=== PATIENT | female | born 1965 | race Caucasian/White ===

== ENCOUNTER → 2024-07-10 15:09 | Outpatient (REF) | payer BC, SELFPAY ==
[2024-07-10 16:56] LABS: Hematocrit 32.6 % (37.0-47.0); Hemoglobin 10.9 g/dL (12.0-16.0); Mean Corp Hgb Conc. 33.4 g/dL (33.0-37.0); Mean Corpuscular Hgb 28.8 pg (27.0-31.0); Mean Corpuscular Volume 86.2 fL (81.0-99.0); Mean Platelet Volume 11.5 fL (7.4-10.4); Platelet Count 220 10^3/uL (130-400); Red Blood Cell Count 3.78 10^6/uL (4.20-5.40); Red Cell Dist. Width 13.8 % (11.5-14.5); White Blood Cell Count 4.7 10^3/uL (4.8-10.8)
[2024-07-10 17:03] LABS: ALT (SGPT) 17 U/L (0-35); AST (SGOT) 26 U/L (14-36); Albumin 4.3 g/dl (3.5-5.0); Alkaline Phosphatase 61 U/L (38-126); Blood Urea Nitrogen 13 mg/dl (7-17); Calcium 9.9 mg/dl (8.4-10.2); Carbon Dioxide 29 mmol/L (22-30); Chloride 103 mmol/L (98-107); Glucose 85 mg/dl (70-99); HDL Cholesterol 77 mg/dl; LDL Cholesterol, Calculated 140 mg/dl; Potassium 4.4 mmol/L (3.5-5.1); Sodium 141 mmol/L (135-145); Total Bilirubin 0.5 mg/dl (0.2-1.3); Total Cholesterol 228 mg/dl (50-199); Total Protein 6.2 g/dl (6.3-8.2); Triglyceride 59 mg/dl (10-149); Very Low Density Lipoprotein 11 mg/dl (0-30); eGFR > 60.00
[2024-07-10 17:31] LABS: TSH Reflex To Free T4 1.25 uIU/ml (0.47-4.68)
== END ==
LOC: REG 15:09
PROVIDERS: ATTENDING PHYSICIAN Physician Assistant Medical
DX: Z00.00 Encounter for general adult medical examination without abnormal findings (principal); Z13.220 Encounter for screening for lipoid disorders
CPT/HCPCS: 36415; 80053; 80061; 84443; 85027

== ENCOUNTER → 2024-07-31 07:24 | Outpatient (REF) | payer BC, SELFPAY ==
[2024-07-31 09:10] LABS: Iron 53 ug/dl (37-170)
[2024-07-31 09:19] LABS: Percent Saturation 17 % (20-50); Total Iron Binding Capacity 308 ug/dl (265-497)
[2024-08-02 19:50] LABS: Capillary Hgb Electrophoresis Not Performed; Sickle Cell Solubility Reflex Not Performed
== END ==
LOC: REG 07:24
PROVIDERS: ATTENDING PHYSICIAN Physician Assistant Medical
DX: R71.0 Precipitous drop in hematocrit (principal); R79.89 Other specified abnormal findings of blood chemistry
CPT/HCPCS: 36415; 83021; 83540; 83550

== ENCOUNTER → 2024-08-02 07:31 | Outpatient (REF) | payer BC, SELFPAY | LOC: WDC 07:31 | PROVIDERS: ATTENDING PHYSICIAN Physician Assistant Medical | DX: Z12.31 Encounter for screening mammogram for malignant neoplasm of breast (principal) | CPT/HCPCS: 77063; 77067 ==

== ENCOUNTER → 2024-08-11 06:21 | Day surgery (SDC) | payer BC, SELFPAY | LOC: GI 06:21 | PROVIDERS: ATTENDING PHYSICIAN Internal Medicine Gastroenterology | DX: D12.0 Benign neoplasm of cecum (principal); D12.3 Benign neoplasm of transverse colon; K55.20 Angiodysplasia of colon without hemorrhage; K57.30 Diverticulosis of large intestine without perforation or abscess without bleeding; K64.8 Other hemorrhoids; R19.5 Other fecal abnormalities; D50.9 Iron deficiency anemia, unspecified | CPT/HCPCS: 45385; 88305 ==

== ENCOUNTER → 2024-08-15 11:01 | Outpatient (REF) | payer BC, SELFPAY ==
[2024-08-15 10:03] LABS: % Immature Granulocytes 0.2 % (0-0.5); % Lymphocytes 42.8 % (20.5-51.1); % Monocytes 10.6 % (1.7-9.3); % Neutrophils 42.4 % (42.2-75.2); Absolute Basophils 0.1 10^3/uL (0-0.2); Absolute Eosinophils 0.2 10^3/uL (0-0.7); Absolute Lymphocytes 2.5 10^3/uL (1.2-3.4); Absolute Monocytes 0.6 10^3/uL (0.1-0.6); Absolute Neutrophils 2.4 10^3/uL (1.4-6.5); Hematocrit 33.9 % (37.0-47.0); Hemoglobin 11.1 g/dL (12.0-16.0); Mean Corp Hgb Conc. 32.7 g/dL (33.0-37.0); Mean Corpuscular Hgb 28.3 pg (27.0-31.0); Mean Corpuscular Volume 86.5 fL (81.0-99.0); Mean Platelet Volume 11.5 fL (7.4-10.4); Nucleated Red Blood Cells % 0 %; Platelet Count 220 10^3/uL (130-400); Red Blood Cell Count 3.92 10^6/uL (4.20-5.40); Red Cell Dist. Width 13.7 % (11.5-14.5); White Blood Cell Count 5.7 10^3/uL (4.8-10.8)
[2024-08-15 10:18] LABS: ALT (SGPT) 22 U/L (0-35); AST (SGOT) 26 U/L (14-36); Albumin 4.5 g/dl (3.5-5.0); Alkaline Phosphatase 61 U/L (38-126); Blood Urea Nitrogen 17 mg/dl (7-17); Carbon Dioxide 27 mmol/L (22-30); Chloride 101 mmol/L (98-107); Glucose 101 mg/dl (70-99); Iron 75 ug/dl (37-170); Potassium 3.7 mmol/L (3.5-5.1); Sodium 141 mmol/L (135-145); Total Bilirubin 0.4 mg/dl (0.2-1.3); Total Protein 6.7 g/dl (6.3-8.2); eGFR > 60.00
[2024-08-15 10:28] LABS: Percent Saturation 25 % (20-50); Total Iron Binding Capacity 298 ug/dl (265-497)
[2024-08-15 10:35] LABS: Vitamin D, 25-OH*** 44.2 ng/mL (30-80)
[2024-08-15 10:53] LABS: Ferritin 31.2 ng/ml (11.1-264.0)
[2024-08-15 11:25] LABS: Folate 10.7 ng/ml (2.76-20); Vitamin B12 524 pg/ml (239-931)
[2024-08-16 21:17] LABS: Haptoglobin 108 mg/dL (30-200)
[2024-08-17 01:23] LABS: LD-1 31 % (14-27); LD-2 36 % (29-42); LD-3 21 % (18-30); LD-4 7 % (8-15); LD-5 5 % (6-23); LDH, Total (Sendout) 196 U/L (105-230)
== END ==
LOC: OIDL 11:01
PROVIDERS: ATTENDING PHYSICIAN Nurse Practitioner Acute Care
DX: D64.9 Anemia, unspecified (principal)
CPT/HCPCS: 80053; 82306; 82607; 82728; 82746; 82784; 83010; 83521; 83540; 83550; 83615; 83625; 84155; 84165; 85025; 85045; 86334

== ENCOUNTER → 2024-11-03 12:48 | Outpatient (REF) | payer BC, SELFPAY ==
[2024-11-03 14:09] LABS: Iron 75 ug/dl (37-170)
[2024-11-03 14:18] LABS: Percent Saturation 25 % (20-50); Total Iron Binding Capacity 293 ug/dl (265-497)
[2024-11-03 14:46] LABS: Ferritin 51.9 ng/ml (11.1-264.0)
== END ==
LOC: REG 12:48
PROVIDERS: ATTENDING PHYSICIAN Nurse Practitioner Acute Care; FAMILY PHYSICIAN Physician Assistant Medical
DX: D64.9 Anemia, unspecified (principal)
CPT/HCPCS: 36415; 82728; 83540; 83550

== ENCOUNTER → 2024-11-08 07:18 | Outpatient (REF) | payer BC, SELFPAY ==
[2024-11-08 07:44] LABS: % Basophils 0.9 % (0-2); % Eosinophils 3.7 % (0-6); % Immature Granulocytes 0.2 % (0-0.5); % Lymphocytes 46.6 % (20.5-51.1); % Monocytes 12.9 % (1.7-9.3); % Neutrophils 35.7 % (42.2-75.2); Absolute Basophils 0.1 10^3/uL (0-0.2); Absolute Eosinophils 0.2 10^3/uL (0-0.7); Absolute Lymphocytes 2.7 10^3/uL (1.2-3.4); Absolute Monocytes 0.8 10^3/uL (0.1-0.6); Absolute Neutrophils 2.1 10^3/uL (1.4-6.5); Hematocrit 32.7 % (37.0-47.0); Hemoglobin 10.7 g/dL (12.0-16.0); Mean Corp Hgb Conc. 32.7 g/dL (33.0-37.0); Mean Corpuscular Volume 88.6 fL (81.0-99.0); Mean Platelet Volume 11.1 fL (7.4-10.4); Nucleated Red Blood Cells % 0 %; Platelet Count 221 10^3/uL (130-400); Red Blood Cell Count 3.69 10^6/uL (4.20-5.40); Red Cell Dist. Width 13.2 % (11.5-14.5); White Blood Cell Count 5.9 10^3/uL (4.8-10.8)
== END ==
LOC: REG 07:18
PROVIDERS: ATTENDING PHYSICIAN Nurse Practitioner Acute Care; FAMILY PHYSICIAN Nurse Practitioner Adult Health
DX: D64.9 Anemia, unspecified (principal)
CPT/HCPCS: 36415; 85025

== ENCOUNTER → 2025-03-19 14:20 | Outpatient (REF) | payer BC, SELFPAY ==
[2025-03-19 14:51] LABS: Urine Albumin 2+ (Neg - Trace); Urine Bilirubin Negative (Negative); Urine Character Clear (Clear); Urine Color Yellow; Urine Glucose Negative (Negative); Urine Ketone Negative (Negative); Urine Leukocyte 3+ (Negative); Urine Nitrite Negative (Negative); Urine Occult Blood 4+ (Negative); Urine Specific Gravity 1.015 (<1.030); Urine Urobilinogen Negative (Neg - 1+)
[2025-03-19 15:41] LABS: Urine Squamous Cell 0-2 /LPF (Few); Urine Urothelial Cell 0-2 /LPF (FEW)
[2025-03-19 15:42] LABS: Urine Bacteria Many (Negative); Urine Red Blood Cell 0-2 /HPF (0-2); Urine White Cell 30-40 /HPF (0-5)
== END ==
LOC: REG 14:20
PROVIDERS: ATTENDING PHYSICIAN Student in an Organized Health Care Education/Training Program; FAMILY PHYSICIAN Physician Assistant Medical
DX: R31.9 Hematuria, unspecified (principal)
CPT/HCPCS: 81003; 81015; 87086; 87088; 87186

== ENCOUNTER → 2025-05-12 15:34 | Outpatient (REF) | payer BC, SELFPAY ==
[2025-05-12 16:33] LABS: % Basophils 0.9 % (0-2); % Eosinophils 1.4 % (0-6); % Immature Granulocytes 0.2 % (0-0.5); % Lymphocytes 30.7 % (20.5-51.1); % Monocytes 8.7 % (1.7-9.3); % Neutrophils 58.1 % (42.2-75.2); Absolute Basophils 0.1 10^3/uL (0-0.2); Absolute Eosinophils 0.1 10^3/uL (0-0.7); Absolute Lymphocytes 1.8 10^3/uL (1.2-3.4); Absolute Monocytes 0.5 10^3/uL (0.1-0.6); Absolute Neutrophils 3.4 10^3/uL (1.4-6.5); Hemoglobin 11.5 g/dL (12.0-16.0); Mean Corp Hgb Conc. 33.8 g/dL (33.0-37.0); Mean Corpuscular Volume 85.6 fL (81.0-99.0); Mean Platelet Volume 11.4 fL (7.4-10.4); Nucleated Red Blood Cells % 0 %; Platelet Count 217 10^3/uL (130-400); Red Blood Cell Count 3.97 10^6/uL (4.20-5.40); Red Cell Dist. Width 13.8 % (11.5-14.5); White Blood Cell Count 5.9 10^3/uL (4.8-10.8)
[2025-05-12 16:56] LABS: Iron 102 ug/dl (37-170)
[2025-05-12 17:06] LABS: Percent Saturation 35 % (20-50); Total Iron Binding Capacity 289 ug/dl (265-497)
[2025-05-12 17:31] LABS: Ferritin 38.2 ng/ml (11.1-264.0)
== END ==
LOC: REG 15:34
PROVIDERS: ATTENDING PHYSICIAN Nurse Practitioner Acute Care; FAMILY PHYSICIAN Physician Assistant Medical
DX: D64.9 Anemia, unspecified (principal)
CPT/HCPCS: 36415; 82728; 83540; 83550; 85025

== ENCOUNTER → 2025-08-20 06:35 | Outpatient (REF) | payer BC, SELFPAY ==
[2025-08-20 07:32] LABS: HDL Cholesterol 83 mg/dl; LDL Cholesterol, Calculated 171 mg/dl; Very Low Density Lipoprotein 15 mg/dl (0-30)
== END ==
LOC: REG 06:35
PROVIDERS: ATTENDING PHYSICIAN Physician Assistant Medical
DX: Z13.220 Encounter for screening for lipoid disorders (principal)
CPT/HCPCS: 36415; 80061

== ENCOUNTER 2025-08-26 05:42 | Day surgery (SDC) | payer BC, SELFPAY ==
--- NOTE | 2025-08-10 13:37 | CM ---
Demographics: confirmed
Living situation: living with
Support Person Post Operatively:
History of
VN: No
SNF: No
Outpatient :
Has patient purchased required equipment: yes
PCP: active
Pharmacy: [facility]
Post Operative Discharge Plan: Home with [facility], transition to outpatient.
--- NOTE | 2025-08-12 15:48 | VNURNOTE ---
Patient is scheduled for an elective R TKA on 08/26 - She is a same day patient with Dr Valladares. Spoke with patient prior to surgery. Introduced role of [facility] Liaison. Patient reports that she lives with her spouse in a split level house. She is a
[employer] employee/ RN.
There is 1 small step to enter, a landing, 7 steps to first level and 7 steps to second level where bedroom and powder room are.
She has a cane and rolling walker.
PCP is Dr Valladares
Discussed [facility] joint protocol and post surgical plans.
Reviewed that she will have VN services initially and will then start outpatient PT.
Patient selects [facility] for her home care needs and [facility]. Scheduled for 08/31 .
Patient is in agreement with plan and states that her spouse will be home with her. Advised to bring RW with her day of surgery. [facility] contact number provided. Referral placed in [facility].
Plan: [facility] per [facility] joint protocol 08/26 then outpt PT on 08/31
[2025-08-14 11:14] LABS: Hematocrit 34.5 % (37.0-47.0); Hemoglobin 11.4 g/dL (12.0-16.0); Mean Corp Hgb Conc. 33.0 g/dL (33.0-37.0); Mean Corpuscular Volume 87.8 fL (81.0-99.0); Platelet Count 213 10^3/uL (130-400); Red Cell Dist. Width 13.5 % (11.5-14.5)
[2025-08-14 11:32] LABS: Glycohemoglobin (HgbA1c) 5.4 % (4.0-5.6)
[2025-08-14 11:36] LABS: ALT (SGPT) 25 U/L (0-35); AST (SGOT) 25 U/L (14-36); Albumin 4.2 g/dl (3.5-5.0); Alkaline Phosphatase 49 U/L (38-126); Blood Urea Nitrogen 14 mg/dl (7-17); Calcium 9.5 mg/dl (8.4-10.2); Carbon Dioxide 26 mmol/L (22-30); Chloride 107 mmol/L (98-107); Glucose 85 mg/dl (70-99); Potassium 3.9 mmol/L (3.5-5.1); Sodium 137 mmol/L (135-145); Total Protein 6.6 g/dl (6.3-8.2); eGFR > 60.00
[2025-08-14 14:11] VITALS: BMI 27.0
[2025-08-14 15:43] VITALS: BMI 27.0
[2025-08-26] VITALS (12 sets, daily range): BP systolic 101–111; BP diastolic 52–67; PULSE 63; O2SAT 94; BMI 27.0
[2025-08-26] MEDS: TYLENOL 650 MG PO (06:16)
[2025-08-26] MEDS: CELEBREX 200 MG PO (06:16)
[2025-08-26] MEDS: NORMOSOL-R/PLASMALYTE-A 1000 IV (06:16)
[2025-08-26] MEDS: ANCEF 5 IV (11:09)
== END 2025-08-26 11:52 | disposition home health service (06) ==
LOC: SDS 05:42
PROVIDERS: ATTENDING PHYSICIAN Orthopaedic Surgery; FAMILY PHYSICIAN Physician Assistant Medical; OTHER PHYSICIAN Physician Assistant Medical
DX: M17.11 Unilateral primary osteoarthritis, right knee (principal)
CPT/HCPCS: 27447; C1713; C1776; 36415; 73560; 80053; 83036; 85027; 86850; 86900; 86901; 87070; 93005; 97116; 97162

== ENCOUNTER 2025-09-18 08:36 | Outpatient (RCR) | payer BC, SELFPAY | END 2025-09-18 23:59 | disposition home or self-care (01) | LOC: RPT 08:36 | PROVIDERS: ATTENDING PHYSICIAN Orthopaedic Surgery; FAMILY PHYSICIAN Physician Assistant Medical | DX: Z73.6 Limitation of activities due to disability; R26.2 Difficulty in walking, not elsewhere classified; M62.81 Muscle weakness (generalized); M25.561 Pain in right knee; R26.89 Other abnormalities of gait and mobility; Z96.651 Presence of right artificial knee joint; Z47.1 Aftercare following joint replacement surgery | CPT/HCPCS: 97010; 97110; 97116; 97140; 97162; 97530 ==

== ENCOUNTER → 2025-09-24 11:38 | Outpatient (REF) | payer BC, SELFPAY | LOC: CPAP 11:38 | PROVIDERS: ATTENDING PHYSICIAN Nurse Practitioner Adult Health | DX: Z01.419 Encounter for gynecological examination (general) (routine) without abnormal findings (principal) | CPT/HCPCS: 87624; G0123 ==

== ENCOUNTER 2025-10-16 07:06 | Outpatient (RCR) | payer BC, SELFPAY | END 2025-10-16 23:59 | disposition home or self-care (01) | LOC: RPT 07:06 | PROVIDERS: ATTENDING PHYSICIAN Orthopaedic Surgery; FAMILY PHYSICIAN Physician Assistant Medical | DX: Z47.1 Aftercare following joint replacement surgery (principal); Z96.651 Presence of right artificial knee joint; Z73.6 Limitation of activities due to disability; R26.2 Difficulty in walking, not elsewhere classified; M62.81 Muscle weakness (generalized); M25.561 Pain in right knee; R26.89 Other abnormalities of gait and mobility | CPT/HCPCS: 97110; 97112; 97140; 97530 ==

== ENCOUNTER 2025-11-09 14:06 | Outpatient (RCR) | payer BC, SELFPAY | END 2025-11-10 05:51 | disposition home or self-care (01) | LOC: RPT 14:06 | PROVIDERS: ATTENDING PHYSICIAN Orthopaedic Surgery; FAMILY PHYSICIAN Physician Assistant Medical | DX: Z47.1 Aftercare following joint replacement surgery (principal); Z73.6 Limitation of activities due to disability; R26.2 Difficulty in walking, not elsewhere classified; M62.81 Muscle weakness (generalized); M25.561 Pain in right knee; R26.89 Other abnormalities of gait and mobility; Z96.651 Presence of right artificial knee joint | CPT/HCPCS: 97110; 97112; 97140; 97530 ==